=== PATIENT | female | born 1935 | race Two or more races ===

== ENCOUNTER 2020-12-19 02:08 | Inpatient (IN) | payer MEDICARE, OTHER ==
[~2020-12-19] VITALS: Ht 157.5 cm; Wt 58.5 kg
--- NOTE | 2020-12-19 02:15 | NUR ---
PATIENT BIBRA 60 FROM HOME FOR RECTAL PAIN D/T CONSTIPATION. PATIENT IS A/O X 4, RR EVEN AND UNLABORED, NO SIGNS OF SOB NOTED. PATIENT CONNECTED TO ELECTRICIAN RADIO AND POX. WILL CONTINUE TO MONITOR.
[2020-12-19 02:33] LABS: BASOPHILS # (AUTO) 0.1 K/uL (0.0-0.2); EOSINOPHILS % (AUTO) 2.9 % (0.0-6.0); HEMATOCRIT 32 % (33-45); HEMOGLOBIN 10.7 g/dL (11.5-14.8); LYMPHOCYTES # (AUTO) 2.1 K/uL (0.8-4.8); LYMPHOCYTES % (AUTO) 23.7 % (20.0-44.0); MEAN CORPUSCULAR HGB CONC 33 g/dl (31.0-36.0); MEAN CORPUSCULAR VOLUME 100 fL (82-100); MONOCYTES # (AUTO) 0.7 K/uL (0.1-1.30); MONOCYTES % (AUTO) 7.7 % (2.0-12.0); NEUTROPHILS # (AUTO) 5.7 K/uL (1.8-8.9); NEUTROPHILS % (AUTO) 64.7 % (43.0-81.0); PLATELET COUNT (AUTO) 195 K/uL (150-450); RED BLOOD CELL COUNT(AUTO) 3.22 MIL/uL (4.0-5.2); WHITE BLOOD COUNT (AUTO) 8.8 K/uL (4.3-11.0)
[2020-12-19 02:37] LABS: CALCIUM, SERUM 8.4 mg/dL (8.5-10.1); CARBON DIOXIDE 27 mmol/L (21-32); CHLORIDE 101 mmol/L (98-107); CREATININE 1.7 mg/dL (0.6-1.3); GLUCOSE 140 mg/dL (74-106); POTASSIUM 4.7 mmol/L (3.5-5.1); SODIUM SERUM 137 mmol/L (136-145); UREA NITROGEN, BLOOD 43 mg/dL (7-18)
--- NOTE | 2020-12-19 03:18 | NUR ---
PATIENT RETURENED FROM CT
--- NOTE | 2020-12-19 03:24 | NUR ---
called Leslye for CT read
[2020-12-19] MEDS ORDERED: MORPHINE SULFATE INJ 2 MG/ML DISP.SYRIN ONE (04:54)
[2020-12-19] MEDS ORDERED: MORPHINE SULFATE INJ 2 MG/ML DISP.SYRIN IV ONE (05:00)
--- NOTE | 2020-12-19 05:33 | NUR ---
PANEL PAGED PER MD'S ORDER
--- NOTE | 2020-12-19 05:48 | NUR ---
CALLED HOUSE [facility] FOR MS BED
--- NOTE | 2020-12-19 05:53 | NUR ---
DR VIEYRA ON THE PHONE WITH DR ALDANA FOR GI CONSULT
[2020-12-19] MEDS ORDERED: Z GUARD REMEDY 2 OZ OINT TP PRN (06:00)
[2020-12-19] MEDS ORDERED: IV NS 0.9% 1,000 ML IV PRN (06:00)
[2020-12-19] MEDS ORDERED: ONDANSETRON HCL/PF 4 MG/2 ML VIAL IVP PRN (06:00)
[2020-12-19] MEDS ORDERED: LISI10TA29 PO (07:36)
[2020-12-19] MEDS ORDERED: MONT10TA22 PO (07:36)
[2020-12-19] MEDS ORDERED: LEVO88TA5 PO (07:36)
[2020-12-19] MEDS ORDERED: GLYCOPYRROL PO (07:36)
[2020-12-19] MEDS ORDERED: LORA-259 PO (07:36)
[2020-12-19] MEDS ORDERED: ESTR1TAB21 PO (07:36)
[2020-12-19] MEDS ORDERED: OMEP20CA15 PO (07:36)
--- NOTE | 2020-12-19 08:27 | NUR ---
report given to Adrienne HAN for dania.
--- NOTE | 2020-12-19 08:38 | NUR ---
wheeled patient via gurney accompanied by EMT in no distress. RN assigned at bedside to assume care.
--- NOTE | 2020-12-19 09:40 | NUR ---
MS FUR VAULT ATTENDANT NOTES RECEIVED ADMISSION IN 301-1. PATIENT WAS BROUGHT BY EMT VIA GURNEY. ALERT AND ORIENTED X4. NO SIGNS OR SYMPTOMS OF DISTRESS NOTED. NO SOB. BREATHING IS EVEN AND UNLABORED. NO COMPLAINTS OF PAIN AT THIS TIME. IV ACCESS RAC#18 PATIENT, INTACT AND FLUSHING WELL. ABLE TO MAKE NEEDS KNOWN. ORIENTED PATIENT TO UNIT, STAFF AND CALL LIGHT. SAFETY MEASURES IN PLACE WITH BED LOCKED AT LOWEST POSITION, SIDE RAILS UP X2. WILL CONTINUE TO MONITOR THROUGHOUT SHIFT.
[2020-12-19] MEDS: PANTOPRAZOLE 40 MG VIAL IV SCH (10:08)
[2020-12-19] MEDS ORDERED: NA PHOS,M-B/NA PHOS,DI-BA 1 EA ENEMA RC PRN (10:30)
--- NOTE | 2020-12-19 11:33 | NUR ---
RN NOTE RECEIVED A CALL FROM DR. WILHELM TO CHANGE THE ORDER FROM FLEET ENEMA TO XR GASTROGRAFFIN ENEMA. RECEIVED ORDERS AND CARRIED OUT.
--- NOTE | 2020-12-19 12:12 | NUR ---
MS RN NOTES SCANNED ENEMA HOWEVER IT WAS NOT ADMINISTERED. ORDER WAS DC'D BEFORE ABLE TO UNDO ADMINISTRATION.
[2020-12-19] MEDS ORDERED: DIATR MEGLU/DIATRIZOATE SODIUM 30 ML BOTTLE (GASTROGRAPHIN) ONE (13:07)
--- NOTE | 2020-12-19 13:38 | NUR ---
MS RN NOTE PATIENT RETURNED FROM RADIOLOGY IN WITH STABLE VITAL SIGNS. ACCORDING TO PATIENT, PATIENT WAS ABLE TO HAVE A SUCCESSFUL BOWEL MOVEMENT AFTER GASTROGRAFFIN FROM RADIOLOGY. MADE AWARE.
[2020-12-19 16:05] VITALS: BP_SYST 100; BP_SYST 137; BP_DIAS 49; BP_DIAS 84
--- NOTE | 2020-12-19 16:50 | NUR ---
MS RN NOTE CALLED [facility], DR. RENEE WILHELM MADE AWARE OF CT OF ABDOMEN/PELVIS WITHOUT CONTRAST (GASTROGRAFFIN ENEMA) WITH NO NEW ORDERS.
[2020-12-19] MEDS: ACETAMINOPHEN 325 MG TABLET PO PRN (17:29)
--- NOTE | 2020-12-19 18:50 | NUR ---
MS RN CLOSING NOTES PATIENT IS IN BED RESTING WITH DAUGHTER AT BEDSIDE. ALERT AND ORIENTED X4. NO SIGNS OR SYMPTOMS OF DISTRESS NOTED. NO SOB. BREATHING IS EVEN AND UNLABORED. IV ACCESS RAC#18 PATIENT AND INTACT RUNNING NS @75MLS/HR. ABLE TO MAKE NEEDS KNOWN. PATIENT CONTINUED TO HAVE BOWEL MOVEMENTS, LIQUID CONSISTENCY. SAFETY MEASURES IN PLACE WITH BED LOCKED AT LOWEST POSITION, SIDE RAILS UP X2. WILL ENDORSE CONTINUITY OF CARE TO NEXT NURSE.
[2020-12-19 19:07] LABS: BILIRUBIN,URINE SMALL (NEGATIVE); COLOR,URINE YELLOW (YELLOW); LEUKOCYTE ESTERASE ,URINE NEGATIVE (NEGATIVE); NITRITE, URINE NEGATIVE (NEGATIVE); PROTEIN,URINE NEGATIVE (NEGATIVE); UGLUCOSE NEGATIVE (NEGATIVE)
--- NOTE | 2020-12-19 19:15 | NUR ---
MS RN OPENING NOTES: RECEIVED PATIENT IN BED, AWAKE,A/OX4. NO S/S OF DISTRESS NOTED. CALL LIGHT WITHIN REACH. BED IN LOWEST AND LOCKED POSITION. DAUGHTER AT THE BEDSIDE. NPO,PATIENT AWARE.
[2020-12-19 19:22] LABS: BACTERIA,URINE None seen /HPF (None Seen); RBC,URINE 0-2 /HPF (0-2); SQUAMOUS EPITHELIAL CELL,UR Few /HPF (None Seen); WBC,URINE 0-2 /HPF (0-3)
--- NOTE | 2020-12-19 19:52 | NUR ---
PATIENT'S DAUGHTER ASSISTED THE PT TO THE BATHROOM, PATIENT IS COMPLAINING THAT SHE CAN NOT PASS THE VERY HARD STOOL AND IF SHE CAN HAVE ENEMA, INFORMED MD. PATIENT IS NPO AT THIS TIME, BUT PT HAS PO MEDS TO BE GIVEN TONIGHT AND IN AM, ASKED MD IF IT'S OKAY TO CHANGE DIET TO NPO EXCEPT MEDS, INFORMED MD.
[2020-12-19 20:08] VITALS: BP 114/54
--- NOTE | 2020-12-19 20:23 | NUR ---
PATIENT SAID THAT SHE ALREADY PASS THE HARD STOOL. AND SHE DOES NOT WANT THE ENEMA ANYMORE.
[2020-12-19] MEDS ORDERED: MINERAL OIL 133 ML (PYXIS) 1 EA ENEMA RC ONE ×2 (20:30→21:40)
[2020-12-19] MEDS ORDERED: POLYVINYL ALCOHOL 15 ML BOTTLE EACHEYE PRN (20:30)
[2020-12-19] MEDS: LORAZEPAM 1 MG TABLET PO SCH (21:09)
[2020-12-19] MEDS: LISINOPRIL (10MG) 10 MG TABLET PO SCH (21:10)
[2020-12-20] MEDS: IV NS 0.9% 1,000 ML IV PRN ×2 (00:48→05:47)
[2020-12-20 06:04] LABS: BASOPHILS % (AUTO) 0.4 % (0.0-2.0); EOSINOPHILS % (AUTO) 1.1 % (0.0-6.0); HEMATOCRIT 29 % (33-45); HEMOGLOBIN 9.7 g/dL (11.5-14.8); LYMPHOCYTES # (AUTO) 1.2 K/uL (0.8-4.8); LYMPHOCYTES % (AUTO) 9.5 % (20.0-44.0); MEAN CORPUSCULAR HGB CONC 33 g/dl (31.0-36.0); MEAN CORPUSCULAR VOLUME 100 fL (82-100); MONOCYTES # (AUTO) 0.9 K/uL (0.1-1.30); MONOCYTES % (AUTO) 7.2 % (2.0-12.0); NEUTROPHILS # (AUTO) 10.4 K/uL (1.8-8.9); NEUTROPHILS % (AUTO) 81.8 % (43.0-81.0); PLATELET COUNT (AUTO) 166 K/uL (150-450); RED BLOOD CELL COUNT(AUTO) 2.92 MIL/uL (4.0-5.2); WHITE BLOOD COUNT (AUTO) 12.7 K/uL (4.3-11.0)
--- NOTE | 2020-12-20 06:38 | NUR ---
MS RN CLOSING NOTES: PATIENT IN BED ASLEEP, EASILY AROUSABLE. CALL LIGHT WITHIN REACH. BED ALARM ON. BED IN LOWEST AND LOCKED POSITION. NO S/S OF DISTRESS NOTED. NO COMPLAIN OF PAIN. HAD BM 6X DURING THE SHIFT. RESTED THROUGHOUT THE NIGHT.
[2020-12-20 06:59] LABS: ALANINE AMINOTRANSFERASE 20 U/L (12-78); ALBUMIN 2.3 g/dL (3.4-5.0); ALKALINE PHOSPHATASE 64 U/L (46-116); ASPARTATE AMINOTRANSFERASE 16 U/L (15-37); CALCIUM, SERUM 7.9 mg/dL (8.5-10.1); CARBON DIOXIDE 25 mmol/L (21-32); CHLORIDE 104 mmol/L (98-107); CREATININE 1.4 mg/dL (0.6-1.3); GLUCOSE 116 mg/dL (74-106); MAGNESIUM 1.9 mg/dL (1.8-2.4); PHOSPHORUS 3.8 mg/dL (2.5-4.9); POTASSIUM 4.7 mmol/L (3.5-5.1); SODIUM SERUM 136 mmol/L (136-145); TOTAL PROTEIN, SERUM 5.3 g/dL (6.4-8.2); UREA NITROGEN, BLOOD 44 mg/dL (7-18)
[2020-12-20 07:03] LABS: CHOLESTEROL 166 mg/dL (<200); HDL CHOLESTEROL 96 mg/dL (40-60); LDL 53 mg/dL (0-99); THYROID STIMULATING HORMONE 0.872 uIU/mL (0.358-3.74); TRIGLYCERIDES 34 mg/dL (30-150)
--- NOTE | 2020-12-20 07:30 | NUR ---
RN MS NOTES PT IN BED, ASLEEP, EASY TO AROUSE, ALERT AND ORIENTED, DENIES PAIN OR ANY DISCOMFORT, RESPIRATIONS NORMAL, IV FLUIDS INFUSING WELL, CALL LIGHT WITHIN EASY REACH.
[2020-12-20 08:00] VITALS: BP 112/51
[2020-12-20] MEDS: MONTELUKAST SODIUM (10MG) 10 MG TABLET PO SCH ×2 (09:00→09:09)
[2020-12-20] MEDS ORDERED: OMEPRAZOLE 20 MG CAPSULE.DR PO SCH (09:00)
[2020-12-20] MEDS: LEVOTHYROXINE SODIUM 88 MCG TABLET PO SCH (09:09)
[2020-12-20] MEDS: GLYCOPYRROLATE 1 MG TABLET PO SCH (09:09)
[2020-12-20] MEDS: ESTRADIOL 1 MG TABLET PO SCH (09:09)
[2020-12-20] MEDS: PANTOPRAZOLE 40 MG VIAL IV SCH (09:10)
[2020-12-20 16:00] VITALS: BP 82/42
[2020-12-20] MEDS: IV D5/ 0.9% NACL 1,000 ML IV PRN (17:46)
--- NOTE | 2020-12-20 18:04 | NUR ---
RN MS NOTES PT IN BED, AWAKE, ALERT AND ORIENTED, NO COMPLAINT OF PAIN OR ANY DISCOMFORT, RESPIRATIONS NORMAL, ABLE TO AMBULATE TO THE BATHROOM WITH STEADY GAIT, PT SEEN BY DR. TREJO, ORDERS GIVEN, NOTED AND CARRIED OUT, PT REQUESTED FOR DIETARY CONSULT, MICHAEL CAME TO SEE PT, IV FLUIDS INFUSING WELL, ALL NEEDS ATTENDED.
--- NOTE | 2020-12-20 19:00 | NUR ---
MS RN OPENING NOTES: RECEIVED PATIENT IN BED, AWAKE, A/O X4. NO S/S OF DISTRESS NOTED. CALL LIGHT WITHIN REACH. BED ALARM ON. BED IN LOWEST AND LOCKED POSITION. NO COMPLAIN OF PAIN. NPO EXCEPT MEDS. PER REPORT FROM DAY SHIFT RN, NO BM TODAY.
[2020-12-20 20:00] VITALS: BP 113/50
[2020-12-20] MEDS: LORAZEPAM 1 MG TABLET PO SCH (22:16)
[2020-12-20] MEDS: LISINOPRIL (10MG) 10 MG TABLET PO SCH (22:17)
--- NOTE | 2020-12-20 22:58 | NUR ---
PATIENT UNABLE TO VOID, FELT THERE'S PRESSURE, AND AN URGE TO VOID BUT UNABLE TO VOID. BLADDER SCANNED, 238 ML URINE, INFORMED STACKER OPERATOR NITHIN.
--- NOTE | 2020-12-20 23:38 | NUR ---
POE CATHETER FR16 INSERTED, URINE SAMPLE FOR UA AND URINE CULTURE COLLECTED AND PLACED IN THE REF TO BE PICKED UP BY THE LAB, CALLED AND INFORMED THEM.
[2020-12-21 01:29] LABS: BILIRUBIN,URINE NEGATIVE (NEGATIVE); COLOR,URINE YELLOW (YELLOW); LEUKOCYTE ESTERASE ,URINE NEGATIVE (NEGATIVE); NITRITE, URINE NEGATIVE (NEGATIVE); PROTEIN,URINE NEGATIVE (NEGATIVE); UGLUCOSE NEGATIVE (NEGATIVE)
[2020-12-21 01:35] LABS: BACTERIA,URINE None seen /HPF (None Seen); RBC,URINE 0-2 /HPF (0-2); SQUAMOUS EPITHELIAL CELL,UR Few /HPF (None Seen); WBC,URINE 0-2 /HPF (0-3)
[2020-12-21] MEDS: IV D5/ 0.9% NACL 1,000 ML IV PRN ×2 (04:27→18:37)
[2020-12-21 06:20] LABS: BASOPHILS % (AUTO) 0.3 % (0.0-2.0); EOSINOPHILS % (AUTO) 2.6 % (0.0-6.0); HEMATOCRIT 26 % (33-45); HEMOGLOBIN 8.8 g/dL (11.5-14.8); LYMPHOCYTES % (AUTO) 11.8 % (20.0-44.0); MEAN CORPUSCULAR HGB CONC 33 g/dl (31.0-36.0); MEAN CORPUSCULAR VOLUME 100 fL (82-100); MONOCYTES # (AUTO) 0.7 K/uL (0.1-1.30); MONOCYTES % (AUTO) 8.2 % (2.0-12.0); NEUTROPHILS # (AUTO) 6.6 K/uL (1.8-8.9); NEUTROPHILS % (AUTO) 77.1 % (43.0-81.0); PLATELET COUNT (AUTO) 152 K/uL (150-450); RED BLOOD CELL COUNT(AUTO) 2.63 MIL/uL (4.0-5.2); WHITE BLOOD COUNT (AUTO) 8.6 K/uL (4.3-11.0)
[2020-12-21 06:59] LABS: CALCIUM, SERUM 7.7 mg/dL (8.5-10.1); CREATININE 1.1 mg/dL (0.6-1.3); POTASSIUM 4.1 mmol/L (3.5-5.1)
--- NOTE | 2020-12-21 07:31 | NUR ---
MS RN OPENING NOTES PATIENT RECEIVED AWAKE IN BED IN NO ACUTE SIGNS OF DISTRESS. A/O X4. ABLE TO MAKE NEEDS KNOWN, NO C/O PAIN AT THIS TIME. ON ROOM AIR, BREATHING EVEN AND UNLABORED. IV ACCESS ON RAC#18 PATIENT AND INTACT, IVF OF D5 NS @100MLS/HR INFUSING WELL, NO S/S OF INFILTRATION AT SITE NOTED. POE IN PLACE, DRAINING CLEAR YELLOW URINE OUTPUT. SAFETY MEASURES IN PLACE: BED LOCKED AND AT LOWEST POSITION, SIDE-RAILS UP X2. CALL LIGHT WITH EASY REACH OF PT. WILL CONTINUE TO MONITOR PT.
[2020-12-21] MEDS: LEVOTHYROXINE SODIUM 88 MCG TABLET PO SCH (07:40)
[2020-12-21 08:00] VITALS: BP 120/55
[2020-12-21] MEDS: ESTRADIOL 1 MG TABLET PO SCH (08:54)
[2020-12-21] MEDS: GLYCOPYRROLATE 1 MG TABLET PO SCH (08:54)
[2020-12-21] MEDS: PANTOPRAZOLE 40 MG TABLET.DR PO SCH (08:54)
[2020-12-21] MEDS: MONTELUKAST SODIUM (10MG) 10 MG TABLET PO SCH (08:58)
[2020-12-21] MEDS: ENSURE ENLIVE 237 ML LIQUID (VANILLA) PO SCH ×2 (10:26→16:55)
[2020-12-21] MEDS: ACETAMINOPHEN 325 MG TABLET PO PRN ×2 (13:36→21:08)
[2020-12-21 16:18] VITALS: BP 112/53
--- NOTE | 2020-12-21 18:49 | NUR ---
MS RN CLOSING NOTES PATIENT IN BED AWAKE AND RESTING AT SEMI-GARCIA'S POSITION. WATCHING TV AT THIS TIME. A/O X4. ABLE TO MAKE NEEDS KNOWN. TOLERATING ROOM AIR WITH NO SOB NOTED DURING THE DAY. IV ACCESS ON RAC#18 LEAKING AND REMOVED. NEW IV ACCES INSERTED TO LFA G#22, IVF OF D5 NS @100MLS/HR INFUSING WELL, NO S/S OF INFILTRATION AT SITE NOTED. POE IN PLACE, DRAINING CLEAR YELLOW URINE OUTPUT, POE CARE DONE. ALL NEEDS AND CARE ATTENDED WELL. SAFETY MEASURES KEPT IN PLACE: BED LOCKED AND AT LOWEST POSITION, SIDE-RAILS UP X2 AND CALL LIGHT WITH EASY REACH OF PT. WILL ENDORSE MANE TO HEALTH EDUCATION SPECIALIST NURSE.
--- NOTE | 2020-12-21 19:06 | NUR ---
CONTINUITY OF CARE Patient in bed, awake, A/o x3 Forgetful. Appears anxious, denies sob. Ongoing IVF. Assisted to the bathroom, and back to bed. Patient had stool, small and soft, reports not having bowel movement in the past 2 days, but records showed 3x bowel movement today. Place call light within reach.
[2020-12-21] MEDS ORDERED: DOCUSATE SODIUM 100 MG CAPSULE PO STA (19:10)
[2020-12-21 20:00] VITALS: BP 120/62
[2020-12-21] MEDS: LORAZEPAM 1 MG TABLET PO SCH (21:08)
[2020-12-21] MEDS: LISINOPRIL (10MG) 10 MG TABLET PO SCH (21:08)
--- NOTE | 2020-12-21 21:10 | NUR ---
RECTAL PAIN c/o rectal pain after trying to go have bowel movement, patient requested Tylenol. Patient had a bowel movement small and soft brown. Tylenol given, will reassess.
[2020-12-21] MEDS ORDERED: MORPHINE SULFATE INJ 2 MG/ML DISP.SYRIN IV ONE (23:00)
--- NOTE | 2020-12-21 23:14 | NUR ---
MORPHINE (PATIENT WITH ALLERGY TO CODEINE) Patient reports Tylenol not helping for rectal pain. Patient requested Morphine. Notified Dr. Nguyen, spoke with the patient, order placed. Patient with allergy to Codeine. Received call from pharmacy, Morphine has Codeine, per patient she was taking Morphine in the past without any problem. Medication was verified and given to patient, will reassess pain.
[2020-12-22] MEDS ORDERED: ZOLPIDEM TARTRATE 5 MG TABLET PO PRN (01:30)
--- NOTE | 2020-12-22 02:00 | NUR ---
INABILITY TO SLEEP Patient reports trying to sleep but unable, requested sleeping pill. Notified Dr. Nguyen with order placed. Given Ambien, will reassess hours of sleep.
[2020-12-22] MEDS: IV D5/ 0.9% NACL 1,000 ML IV PRN (04:34)
[2020-12-22 06:17] LABS: BASOPHILS % (AUTO) 0.4 % (0.0-2.0); EOSINOPHILS % (AUTO) 5.8 % (0.0-6.0); HEMATOCRIT 25 % (33-45); HEMOGLOBIN 8.4 g/dL (11.5-14.8); LYMPHOCYTES # (AUTO) 1.2 K/uL (0.8-4.8); LYMPHOCYTES % (AUTO) 20.5 % (20.0-44.0); MEAN CORPUSCULAR HGB CONC 33 g/dl (31.0-36.0); MEAN CORPUSCULAR VOLUME 100 fL (82-100); MONOCYTES # (AUTO) 0.7 K/uL (0.1-1.30); MONOCYTES % (AUTO) 12.4 % (2.0-12.0); NEUTROPHILS # (AUTO) 3.4 K/uL (1.8-8.9); NEUTROPHILS % (AUTO) 60.9 % (43.0-81.0); PLATELET COUNT (AUTO) 143 K/uL (150-450); RED BLOOD CELL COUNT(AUTO) 2.51 MIL/uL (4.0-5.2); WHITE BLOOD COUNT (AUTO) 5.7 K/uL (4.3-11.0)
--- NOTE | 2020-12-22 06:35 | NUR ---
END OF SHIFT REPORT Patient is A/O x3 Forgetful. Rectal pain improved with Morphine. Ongoing IVF. Patient slept well with Ambien. Johnson cath in place, urine good output. Urine cx pending result. Patient records showed daily bowel movement. Fall precaution maintained. will endorse to oncoming RN.
[2020-12-22 07:03] LABS: CALCIUM, SERUM 7.7 mg/dL (8.5-10.1); POTASSIUM 4.1 mmol/L (3.5-5.1)
--- NOTE | 2020-12-22 07:35 | NUR ---
RN OPENING NOTE RECEIVED PATIENT AWAKE ALERT AND ORIENTED X 3 AND FORGETFUL. PATIENT IS IN ROOM AIR SATURATING WELL. PATIENT IN NO APPARENT RESPIRATORY DISTRESS NOTED. NO COMPLAINED OF PAIN NOTED AT THIS TIME. WILL CONTINUE TO MONITOR.
[2020-12-22 08:00] VITALS: BP 129/58
[2020-12-22] MEDS: LEVOTHYROXINE SODIUM 88 MCG TABLET PO SCH (08:26)
[2020-12-22] MEDS: ESTRADIOL 1 MG TABLET PO SCH (08:27)
[2020-12-22] MEDS: ENSURE ENLIVE 237 ML LIQUID (VANILLA) PO SCH (08:27)
[2020-12-22] MEDS: GLYCOPYRROLATE 1 MG TABLET PO SCH (08:27)
[2020-12-22] MEDS: PANTOPRAZOLE 40 MG TABLET.DR PO SCH (08:27)
[2020-12-22] MEDS: MONTELUKAST SODIUM (10MG) 10 MG TABLET PO SCH (08:27)
[2020-12-22] MEDS: ACETAMINOPHEN 325 MG TABLET PO PRN (09:10)
--- NOTE | 2020-12-22 09:12 | NUR ---
RN NOTES PATIENT VERBALIZED RECTAL PAIN RATED 4/10, PATIENT REQUEST FOR TYLENOL 650MG 1 TAB P.O. WAS GIVEN. WILL CONTINUE TO MONITOR.
--- NOTE | 2020-12-22 11:29 | NUR ---
RN NOTES PATIENT AWAKE ALERT AND ORIENTED X 3. PATIENT IS IN ROOM AIR SATURATION 98% TOLERATED WELL. PATIENT IN NO APPARENT RESPIRATORY DISTRESS NOTED. NO COMPLAINED OF PAIN NOTED AT THIS TIME. SEEN AND EXAMINED BY MD WITH ORDERS MADE AND CARRIED OUT. ALL DUE MEDICATIONS WAS GIVEN. DISCHARGED INSTRUCTIONS WAS GIVEN PATIENT VERBALIZED UNDERSTANDING. PATIENT LEFT THE HOSPITAL IN MEDICALLY STABLE CONDITION POULTRY GRADER BY VIKY () VIA PRIVATE CAR.
== END 2020-12-22 11:30 | disposition home or self-care (01) | DRG 391 ==
LOC: ER 02:10 → MED 07:58
PROVIDERS: ADMIT Family Medicine; ATTEND Family Medicine
DX: K59.00 Constipation, unspecified (principal); N17.0 Acute kidney failure with tubular necrosis; Z90.49 Acquired absence of other specified parts of digestive tract; I12.9 Hypertensive chronic kidney disease with stage 1 through stage 4 chronic kidney disease, or unspecified chronic kidney disease; N18.9 Chronic kidney disease, unspecified; K44.9 Diaphragmatic hernia without obstruction or gangrene; K21.9 Gastro-esophageal reflux disease without esophagitis; Z20.822 Contact with and (suspected) exposure to COVID-19; E03.9 Hypothyroidism, unspecified; F41.9 Anxiety disorder, unspecified; I10 Essential (primary) hypertension; J44.9 Chronic obstructive pulmonary disease, unspecified; Z82.3 Family history of stroke; Z82.49 Family history of ischemic heart disease and other diseases of the circulatory system; R68.2 Dry mouth, unspecified; R73.9 Hyperglycemia, unspecified; D63.8 Anemia in other chronic diseases classified elsewhere
CPT/HCPCS: 36415; 80048-TC; 80053-TC; 80061-TC; 81001; 82570-TC; 83540-TC; 83735-TC; 84100-TC; 84300-TC; 84443-TC; 85025-TC; 87081-TC; 87086-TC; C9113; C9803; G0378; J2270; J7030; J7042; Q9963